=== PATIENT | male | born 1950 | race Caucasian/White ===

== ENCOUNTER 2024-03-30 00:40 | Emergency (ER) | payer OTHER ==
[2024-03-30 01:02] VITALS: BP 139/83; PULSE 106; RESP 18; TEMP 99.1; BMI 31.1
[2024-03-30] MEDS ORDERED: ACETAMINOPHEN 325 MG TABLET (FP) ONE (01:33)
[2024-03-30] MEDS ORDERED: LIDOCAINE 4% PATCH TP ONE (01:33)
[2024-03-30] MEDS: LIDOCAINE 4% PATCH TP ONE (01:49)
[2024-03-30] MEDS: ACETAMINOPHEN 500 MG TABLET (FP) PO ONE (01:50)
[2024-03-30] MEDS ORDERED: LIDOCAINE PATCH REMOVAL MC SCH (22:00)
== END 2024-03-30 02:39 | disposition home or self-care (01) ==
LOC: JER 00:40
DX: R07.81 Pleurodynia (principal); Z20.822 Contact with and (suspected) exposure to COVID-19
CPT/HCPCS: 0241U-QW; 71046-TC-FY; 71101-TC-RT-FY; 99284-25